=== PATIENT | female | born 1990 | race Caucasian/White ===

== ENCOUNTER 2017-06-08 23:20 | Emergency (ER) | payer MEDICAID, OTHER ==
[2017-06-08 23:20] VITALS: BMI 41.1
[2017-06-09] MEDS ORDERED: Albuterol-Ipratrop 3 mg / 0.5 (3 ml) UD INH STA (00:49)
[2017-06-09] MEDS ORDERED: Albuterol-Ipratrop 3 mg / 0.5 (3 ml) UD ONE (00:51)
--- NOTE | 2017-06-09 00:51 | C.PDOC ---
History Of Present Illness 27 year old female with presents to the ER with a complaint of cough, cold, and congestion for the past week, dry cough. She also has left facial pain with a hx of TMJ. Patient is 8 weeks and states she has not taken anything for her symptoms due to fear of causing harm to the baby. Denies fever or chills. No nasuea no vomit. no diarrhea. Chief Complaint (Nursing): Cough, Cold, Congestion History Per: Patient History/Exam Limitations: no limitations Onset/Duration Of Symptoms: Days Current Symptoms Are (Timing): Still Present Location Of Pain: Throat Sick Contacts (Context): None Associated Symptoms: Cough, Nasal Congestion. denies: Fever, Chills Ear Symptoms: Bilateral: None Pain Scale Rating Of: 3 Recent travel outside of the [place]: No Additional History Per: Patient Past Medical History Reviewed: Historical Data, Nursing Documentation, Vital Signs Vital Signs: Last Vital Signs Temp 98.7 F 06/08/17 23:40 Pulse 100 H 06/08/17 23:40 Resp 20 06/08/17 23:40 BP 108/73 06/08/17 23:40 Pulse Ox 97 06/09/17 01:03 - [facility] Procedures ARTIF RUPT MEMBRANES NEC (02/14/15) ASPIRAT CURET-POST DELIV (03/11/15) MONITORING NOS (10/02/14) MANUAL ASSIST DELIV NEC (02/14/15) REPAIR OB LACERATION NEC (02/14/15) Family History: States: Unknown Family Hx - Social History Hx Tobacco Use: No Hx Alcohol Use: No Hx Substance Use: No - Immunization History Hx Tetanus Toxoid Vaccination: No Hx Influenza Vaccination: No Hx Pneumococcal Vaccination: No Review Of Systems Constitutional: Negative for: Fever, Chills Eyes: Negative for: Pain ENT: Positive for: Ear Pain, Nose Congestion, Throat Pain, Other (left face pain ). Negative for: Ear Discharge, Nose Pain, Nose Discharge, Mouth Pain, Mouth Swelling Cardiovascular: Negative for: Chest Pain, Palpitations, Orthopnea, Paroxysmal Noc. Dyspnea, Edema, Light Headedness Respiratory: Positive for: Cough. Negative for: Shortness of Breath, Hemoptysis , SOB with Excertion, Pleuritic Pain, Sputum, Wheezing Gastrointestinal: Negative for: Nausea, Vomiting, Abdominal Pain, Constipation, Melena, Rectal Pain Genitourinary: Negative for: Dysuria, Frequency, Incontinence, Hematuria Skin: Negative for: Rash Neurological: Negative for: Weakness, Numbness, Incoordination, Change in Speech , Confusion, Seizures, Altered Mental Status, Headache Psych: Negative for: Anxiety Physical Exam - Physical Exam Appears: Non-toxic, No Acute Distress Skin: Normal Color, Warm, Dry Head: Atraumatic, Normacephalic Eye(s): bilateral: Normal Inspection Ear(s): Bilateral: Normal Oral Mucosa: Moist Throat: Erythema Neck: Normal, Supple Chest: Symmetrical, No Tenderness Cardiovascular: Rhythm Regular Respiratory: Normal Breath Sounds, No Rales, No Rhonchi, No Wheezing Gastrointestinal/Abdominal: Soft, No Tenderness Neurological/Psych: Oriented x3, Normal Speech ED Course And Treatment O2 Sat by Pulse Oximetry: 97 (Room air) Pulse Ox Interpretation: Normal Medical Decision Making Medical Decision Making: Plan: * Albuterol nebulizer/ albuterol and atrovent. SHe did not want tylenol or any other medications Disposition Counseled Patient/Family Regarding: Diagnosis - Disposition Disposition Time: 02:13 Condition: GOOD Instructions: Upper Respiratory Infection (ED) Forms: [employer] ([place]ayan) - Clinical Impression Clinical Impression: Bronchitis, Laryngitis - Scribe Statement The provider has reviewed the documentation as recorded by the Scriberi Blanchard All medical record entries made by the Haileyiberi were at my direction and personally dictated by me. I have reviewed the chart and agree that the record accurately reflects my personal performance of the history, physical exam, medical decision making, and the department course for this patient. I have also personally directed, reviewed, and agree with the discharge instructions and disposition.
[2017-06-09 03:10] VITALS: BP 120/76; PULSE 88; RESP 16; TEMP 98.4; O2SAT 99
== END 2017-06-09 02:20 | disposition home or self-care (01) ==
LOC: C.ER 23:20
DX: J40 Bronchitis, not specified as acute or chronic (principal); J04.0 Acute laryngitis